=== PATIENT | female | born 1975 | race Caucasian/White ===

== ENCOUNTER 2016-10-05 13:34 | Emergency (ER) | payer OTHER ==
[~2016-10-05] VITALS: Ht 170.2 cm; Wt 63.4 kg
[2016-10-05 13:37] VITALS: BP 159/89; PULSE 72; TEMP 36.6; O2SAT 98; Ht 170.2 cm; Wt 63.4 kg
--- NOTE | 2016-10-05 14:19 | EMERGENCY ROOM VISIT NOTE ---
ED Visit Note First contact with patient: 14:04 CHIEF COMPLAINT: Body Fluid exposure HPI: This 41-year-old female presents to the Emergency Department ambulatory for evaluation of a body fluid exposure which occurred just prior to arrival. Patient was working in the operating room and accidentally was stuck in the left palm with a scalp needle. The wound has already been cleansed. Bleeding is controlled. They deny numbness, tingling, or loss of motion. Source patient is known, Ace Smith and his attending is Dr Ennis. History of the source patient is not known at this time. The patient works at [employer]. They have had the hepatitis B. vaccination, and titers are unknown. They believe their tetanus is up-to-date. Pain is 0/10. ALLERGIES: Clarithromycin MEDICATIONS: Patient denies PMH: Patient denies SOCIAL HISTORY: The patient does not smoke. She is employed Physical Exam: VITALS: Nursing notes reviewed and vitals are stable. GENERAL: This is a 41-year-old female, in no acute distress, well developed, well nourished. SKIN: Warm and dry with good turgor. There are no abrasions. There is a solitary puncture ginger present at the left palm. Bleeding is controlled. No edema. Capillary refill is 2+. MUSCULOSKELETAL: Patient has full active range of motion of the hand and fingers. Normal strength. NEURO: Gross sensation is intact across the hand and fingers. ED COURSE: I examined the patient. Option of HIV, hepatitis C, and hepatitis B testing was discussed with the patient. The risks, benefits, purpose, and limitations of the tests were explained to the patient and all of their questions were answered. They elected to proceed. I did perform pretest counseling and the appropriate consent forms were signed. Patient was given information on prevention of exposure and transmission as well as hospital confidentiality. Blood exposure handout was provided. Patient elected to decline HIV prophylaxis at this time. They will follow-up with employee health. Wound care instructions were provided. Impression: Body fluid exposure Plan: Follow up with employee health for further evaluation, treatment, and test results. I did discuss the case with Marlys Young who is already aware of the exposure and will follow up with the patient. Problem List Medical Problems: (1) facial reconstruction surgery Status: Resolved Current/Historical Medications No Active Prescriptions or Reported Meds Allergies Coded Allergies: Clarithromycin (Verified Allergy, Severe, RASH, 10/05/16) Vital Signs Date Time Temp Pulse Resp B/P Pulse Ox O2 Delivery O2 Flow Rate FiO2 10/05/16 13:37 36.6 72 17 159/89 98 Room Air Departure Information Impression Primary Impression: Employee exposure to body fluids Dispostion Home / Self-Care Condition GOOD Prescriptions No Active Prescriptions or Reported Meds Referrals Marlys Young (PCP) Patient Instructions ED Body Fluid Exp HC Worker, [place] Additional Instructions Follow up with employee health for further evaluation, treatment, and test results.
== END 2016-10-05 14:35 | disposition home or self-care (01) ==
LOC: C.EDB 13:35 → C.EDD 14:35
DX: Z77.21 Contact with and (suspected) exposure to potentially hazardous body fluids (principal); S61.432A Puncture wound without foreign body of left hand, initial encounter; W46.1XXA Contact with contaminated hypodermic needle, initial encounter; Y92.234 Operating room of hospital as the place of occurrence of the external cause; Y99.0 Civilian activity done for income or pay

== ENCOUNTER → 2016-10-25 | Outpatient (CLI) | payer OTHER ==
--- NOTE | 2016-10-25 21:21 | DIAGNOSTIC IMAGING REPORT ---
LEFT FINGER(S) MIN 2 VIEWS ROUTINE CLINICAL HISTORY: Left thumb pain following injury. COMPARISON: None FINDINGS: Alignment of the left thumb is anatomic. There is no acute fracture. Joint spaces are preserved. IMPRESSION: No acute fracture or dislocation of the left thumb. Electronically signed by: Luis E Tolliver M.D. 10/25/2016 9:19 PM Dictated Date/Time: 10/25/2016 9:16 PM
== END | disposition home or self-care (01) ==
LOC: C.RAD 21:03
PROVIDERS: ATTEND Orthopaedic Surgery
DX: S69.92XA Unspecified injury of left wrist, hand and finger(s), initial encounter (principal); X58.XXXA Exposure to other specified factors, initial encounter

== ENCOUNTER → 2016-11-09 | Outpatient (CLI) | payer OTHER ==
--- NOTE | 2016-11-09 11:51 | DIAGNOSTIC IMAGING REPORT ---
MRI OF THE LEFT HAND/THUMB NO CONTRAST CLINICAL HISTORY: LEFT THUMB PAIN skiing injury COMPARISON STUDY: Conventional radiographic study dated 10/25/2016 FINDINGS: There is marrow edema involving the ulnar aspect of the first metacarpal distally. There is a suspected avulsion involving the metacarpal insertion of the ulnar collateral ligament. There is equivocal associated volar plate injury. There are no additional areas of pathologic edema. There is no dislocation. IMPRESSION: 1. Marrow edema involving the ulnar aspect of the first metacarpal distally 2. Suspected avulsion involving the metacarpal insertion of the ulnar collateral ligament 3. Equivocal associated volar plate injury of the first metacarpal phalangeal joint. Electronically signed by: Yoav Pope M.D. 11/09/2016 11:50 AM Dictated Date/Time: 11/09/2016 11:41 AM
== END | disposition home or self-care (01) ==
PROVIDERS: ATTEND Orthopaedic Surgery
DX: M79.645 Pain in left finger(s) (principal)

== ENCOUNTER 2017-06-01 12:37 | Emergency (ER) | payer OTHER ==
[~2017-06-01] VITALS: Ht 170.2 cm; Wt 61.0 kg
[2017-06-01 12:42] VITALS: BP 151/93; PULSE 65; TEMP 37; O2SAT 100; Ht 170.2 cm; Wt 61.0 kg
--- NOTE | 2017-06-01 17:33 | EMERGENCY ROOM VISIT NOTE ---
History First contact with patient: 12:45 Chief Complaint: NEEDLE STICK Stated Complaint: SHARP PUNCTURE DURING SURGERY - History of Present Illness The patient is a 42 year old female who presents to the Emergency Room with complaints of a puncture wound to her left third finger. The patient was assisting in surgery with Dr. Gonzalez when she accidentally stuck her finger with an osteotome. The injury happened at approximately 11:40 AM. The patient did clean the wound well, and presents to the emergency department for further evaluation. The patient is [id number]. Tetanus immunization and other required immunization series are up-to-date. Source patient was Darren Lopez, with Dr. Gonzalez as the attending physician. Review of Systems 6 system review was performed and was negative except for pertinent positives and negatives as indicated in history of present illness Past Medical/Surgical History Medical Problems: (1) facial reconstruction surgery Family History Unremarkable Social History Smoking Status: Never Smoker Alcohol Use: none Marital Status: single Occupation Status: employed Current/Historical Medications No Active Prescriptions or Reported Meds Physical Exam Vital Signs Date Time Temp Pulse Resp B/P (MAP) Pulse Ox O2 Delivery O2 Flow Rate FiO2 06/01/17 12:42 37.0 65 20 151/93 100 Room Air Physical Exam CONSTITUTIONAL: Healthy and well nourished. Alert and oriented X 3 with positive affect. HEENT: Normocephalic, atraumatic. Pupils equal, round and reactive. MUSCULOSKELETAL: Examination of the left third finger shows a small puncture wound at the volar base of the distal phalanx/digital pad. The patient is able to flex and extend the DIP joint and finger without discomfort. Capillary refill is less than 2 seconds. There is no erythema or edema about the puncture wound site. INTEGUMENTARY: No rash or other significant dermatologic conditions noted. NEUROLOGIC: Left third fingertip is sensory intact. Medical Decision & Procedures ED Course Patient history and physical exam were performed. Nurse's notes were reviewed. Vital signs were reviewed and were normal. I did suggest that the patient undergo baseline testing given her percutaneous needle puncture wound. Because the patient is currently in inpatient status, the patient deferred HIV postexposure prophylaxis until further source patient testing is completed. The patient did sign informed consent for HIV baseline testing. She was instructed to watch for any signs of wound infection. She may intermittently apply ice to the finger, and take ibuprofen or Tylenol if needed for additional pain relief. She was instructed to follow-up with Employee Health for further management. The patient denied any pain at the time of discharge, and was happy with plan of care. Medical Decision Blood Pressure Screening Patient's blood pressure: Normal blood pressure Impression Primary Impression: Needle stick injury of finger of left hand Additional Impression: Work related injury Departure Information Dispostion Home / Self-Care Condition FAIR Prescriptions No Active Prescriptions or Reported Meds Forms HOME CARE DOCUMENTATION FORM, IMPORTANT VISIT INFORMATION Patient Instructions [facility] [employer] [facility] Additional Instructions Follow-up with Employee Health for further management. Watch for any signs of wound infection or other wound complications. Ibuprofen or Tylenol as needed for pain. Problem Qualifiers Primary Impression: Needle stick injury of finger of left hand Encounter type: initial encounter Qualified Codes: S61.239A - Puncture wound without foreign body of unspecified finger without damage to nail, initial encounter; W27.3XXA - Contact with needle (sewing), initial encounter
[2017-06-18] MEDS ORDERED: CEPH500C PO (12:20)
== END 2017-06-01 13:11 | disposition home or self-care (01) ==
LOC: C.EDB 12:38 → C.EDD 13:11
DX: S61.233A Puncture wound without foreign body of left middle finger without damage to nail, initial encounter (principal); W45.8XXA Other foreign body or object entering through skin, initial encounter; Y92.234 Operating room of hospital as the place of occurrence of the external cause; Y99.0 Civilian activity done for income or pay